=== PATIENT | female | born 1995 | race Caucasian/White ===

== ENCOUNTER 2017-01-04 12:41 | Emergency (ER) | payer OTHER ==
[~2017-01-04] VITALS: Ht 152.4 cm; Wt 62.6 kg
--- NOTE | 2017-01-04 13:39 | ED GI/GU/ABDOMINAL COMPLAINT ---
History of Present Illness General Chief Complaint: Abdominal Pain/Flank Pain Stated Complaint: RIGHT FLANK PAIN, ?"PROBLEMS WITH IUD" Source: patient Exam Limitations: no limitations Vital Signs & Intake/Output Vital Signs & Intake/Output Vital Signs Date Time Temp Pulse Resp B/P B/P Pulse O2 O2 Flow FiO2 Mean Ox Delivery Rate 01/04 1629 97.5 52 18 99/67 97 Room Air 01/04 1246 97.6 68 18 100/68 98 Room Air Allergies Coded Allergies: NO KNOWN ALLERGIES (05/03/12) Reconcile Medications Doxycycline Hyclate 100 MG TABLET 1 TAB PO BID llq pain Fluoxetine HCl 40 MG CAPSULE 1 CAP PO QAM MENTAL HEALTH (Reported) Levonorgestrel (Kyleena) 17.5 MCG/24 HOUR (5 YEARS) IUD CONTROL (Reported ) Lisdexamfetamine Dimesylate (Vyvanse) 50 MG CAPSULE 1 CAP PO QAM MENTAL HEALTH (Reported) Triage Note: 21 Y/O AND R FLANK. STATES SHE HAD AN IUD PLACED IN OCTOBER AND RECENTLY HAD INTERCOUSE - FELT PAIN IMMEDIATELY AFTER. DENIES URINARY SYMPTOMS. DENIES BLEEDING. STATES NAUSEA THIS MORNING. CALLED OB AND NO APPPOINTMENTS WERE AVAILABLE SO PT WAS DIRECTED TO ED. Triage Nurses Notes Reviewed? yes ? N Is pt currently ? No Onset: Abrupt Duration: week(s): (1) Timing: recent history Location: right flank, right lower quadrant, suprapubic No Modifying Factors: none HPI: 21 year old female presents to the ER for chief complaint of rlq pain radiating to the right groin and flank. She had an IUD placed in october and recently had intercourse and felt painthereafter. She denies any bleeding or urinary symptoms. She tried to go to her OB today who referred here here. Past History Travel History Traveled to [place] past 21 day No Medical History Any Pertinent Medical History? 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 No Review of Systems Review of Systems Constitutional: Denies: chills, fever. EENTM: Reports: no symptoms. Respiratory: Denies: cough, short of breath. Cardiovascular: Denies: chest pain. GI: Reports: abdominal pain, nausea. Denies: vomiting. Genitourinary: Denies: discharge, dysuria, frequency, hematuria. Musculoskeletal: Denies: back pain. Skin: Reports: no symptoms. Neurological/Psychological: Reports: no symptoms. Hematologic/Endocrine: Denies: bruising, bleeding, polyuria, polydipsia. Immunologic/Allergic: Denies: splenectomy. All Other Systems: Reviewed and Negative Physical Exam Physical Exam General Appearance: well developed/nourished, alert, awake Head: atraumatic, normal appearance Eyes: Bilateral: normal appearance, PERRL, EOMI. Ears, Nose, Throat, Mouth: hearing grossly normal, moist mucous membrane Neck: normal inspection, supple, full range of motion Respiratory: normal breath sounds, chest non-tender, no respiratory distress Cardiovascular: regular rate/rhythm Peripheral Pulses: 2+ radial (R), 2+ radial (L) Gastrointestinal: normal bowel sounds, soft, tenderness (rlq, suprapubic), NO REBOUND/GUARDING Pelvic: normal external exam, normal speculum exam, normal bimanual exam, no masses Back: normal inspection, normal range of motion Neurologic/Psych: no motor/sensory deficits, awake, alert, oriented x 3 Skin: intact, normal color, warm/dry Core Measures ACS in differential dx? No Severe Sepsis Present: No Septic Shock Present: No Progress Differential Diagnosis: ectopic , kidney stone, ovarian cyst, ovarian torsion, PID/cervicitis, UTI/pyelo Plan of Care: Orders Procedure Date/time Status TRICHOMONAS 01/04 1450 Complete POTASSIUM HYDROXIDE (ROMEO) 01/04 1450 Complete GENITAL CULTURE 01/04 1450 Active CHLAMYDIA-GC DNA PROBE 01/04 1450 Active URINE 01/04 1250 Complete URINALYSIS 01/04 1250 Complete Laboratory Tests 01/04/17 1407: Urine Color YEL, Urine Clarity CLEAR, Urine pH 7.5, Ur Specific [place] 1.010, Urine Protein 100 H, Urine Ketones NEG, Urine Nitrite NEG, Urine Bilirubin NEG, Urine Urobilinogen 2.0 H, Ur Leukocyte Esterase MOD H, Ur Microscopic SEDIMENT EXAMINED, Urine RBC 3-5, Urine WBC 15-25 H, Ur Epithelial Cells MOD H, Urine Bacteria MANY H, Urine Hemoglobin TRACE-INTACT, Urine Glucose NEG, Urine Test NEGATIVE Microbiology 01/04 1500 GENITAL: GC DNA Probe - RECD 01/04 1500 GENITAL: Chlamydia DNA Probe (YARA) - RECD 01/04 1500 GENITAL: ROMEO Preparation - COMP 01/04 1500 GENITAL: Trichomonas Preparation - COMP 01/04 1500 GENITAL: Genital Culture - RECD Diagnostic Imaging: Viewed by Me: Ultrasound. Discussed w/RAD: Ultrasound. Initial ED EKG: none Comments: PATIENT: NEYDA WILEY PRESENT AGE: 21 PATIENT ACCOUNT NO: [id number] : 95 LOCATION: [facility] ORDERING PHYSICIAN: WARREN LOPEZ MD SERVICE DATE: 01/04/17 EXAM TYPE: US - US-TRANSVAGINAL EXAMINATION: ULTRASOUND OF THE PELVIS CLINICAL INFORMATION: Pelvic pain after intercourse. Feels like IUD removed. Evaluate for dislodged IUD. COMPARISON: None TECHNIQUE: Transabdominal and transvaginal pelvic ultrasound. A transvaginal study was performed in addition to the transabdominal study which did not yield an adequate examination of the uterus and ovaries due to superimposed distended gas-filled loops of bowel. Also, the bladder was completely decompressed. FINDINGS: Uterus: The uterus is anteverted and normal in size and appearance, measuring 6.5 x 3.5 x 3.8. The endometrial stripe thickness is normal, measuring 0.5 cm in thickness. An intrauterine device is seen extending to the uterine fundus with the struts extending into the uterine horns . No focal myometrial mass is seen. The cervical length is normal measuring approximately 3 cm longitudinally. No endocervical fluid is seen. Ovaries: The ovaries bilaterally are visualized and demonstrate small follicles, with the right ovary measuring 2.7 x 1.5 x 1.6 cm and the left ovary measuring 3.7 x 1.6 x 3.3 cm. In the left ovary, the cysts measure up to 2.9 x 1.5 x 1.3 cm. No suspicious nodular components are seen. Other: No adnexal mass or free fluid collection seen. IMPRESSION: 1. Satisfactory positioning of the intrauterine device. 2. No abnormal endometrial or endocervical fluid or abnormal stripe thickening seen. 3. Normal uterus and ovaries. DICTATED BY: VALERI MCKEON MD DATE/TIME DICTATED:01/04/171538 SENIOR APPLICATIONS ANALYST:RASHID DATE/TIME TRANSCRIBED:01/04/171538 CONFIDENTIAL, DO NOT COPY WITHOUT APPROPRIATE AUTHORIZATION. <Electronically signed in Other Vendor System> SIGNED BY: VALERI MCEKON MD 1701 Departure Departure Time of Disposition: 1717 Disposition: HOME OR SELF CARE Condition: Stable Clinical Impression Primary Impression: IUD check up Referrals: SUMA RODRIGUEZ,SUSAN Cornelius (PCP/Family) Additional Instructions: Please follow-up with your ORTHOTIC FITTER doctor. Take Motrin Tylenol as needed for pain. Departure Forms: Customer Survey General Discharge Information
[2017-01-04] MEDS ORDERED: FLUOXETINE HCL40 M1 PO (13:54)
[2017-01-04] MEDS ORDERED: VYVANSE50 M1 PO (13:54)
[2017-01-04 16:29] VITALS: BP 99/67
--- NOTE | 2017-01-04 17:05 | ULTRASOUND REPORT ---
EXAMINATION: ULTRASOUND OF THE PELVIS CLINICAL INFORMATION: Pelvic pain after intercourse. Feels like IUD removed. Evaluate for dislodged IUD. COMPARISON: None TECHNIQUE: Transabdominal and transvaginal pelvic ultrasound. A transvaginal study was performed in addition to the transabdominal study which did not yield an adequate examination of the uterus and ovaries due to superimposed distended gas-filled loops of bowel. Also, the bladder was completely decompressed. FINDINGS: Uterus: The uterus is anteverted and normal in size and appearance, measuring 6.5 x 3.5 x 3.8. The endometrial stripe thickness is normal, measuring 0.5 cm in thickness. An intrauterine device is seen extending to the uterine fundus with the struts extending into the uterine horns . No focal myometrial mass is seen. The cervical length is normal measuring approximately 3 cm longitudinally. No endocervical fluid is seen. Ovaries: The ovaries bilaterally are visualized and demonstrate small follicles, with the right ovary measuring 2.7 x 1.5 x 1.6 cm and the left ovary measuring 3.7 x 1.6 x 3.3 cm. In the left ovary, the cysts measure up to 2.9 x 1.5 x 1.3 cm. No suspicious nodular components are seen. Other: No adnexal mass or free fluid collection seen. IMPRESSION: 1. Satisfactory positioning of the intrauterine device. 2. No abnormal endometrial or endocervical fluid or abnormal stripe thickening seen. 3. Normal uterus and ovaries.
== END 2017-01-04 17:27 ==
LOC: ERH 12:41
DX: T83.84XA Pain due to genitourinary prosthetic devices, implants and grafts, initial encounter (principal)
CPT/HCPCS: 87070; 81001; 81025; 87491; 87591

== ENCOUNTER 2017-01-13 15:58 | Emergency (ER) | payer OTHER ==
[~2017-01-13] VITALS: Ht 152.4 cm; Wt 63.0 kg
[~2017-01-13 15:58] MED LIST: FLUOXETINE HCL40 M1 PO; VYVANSE50 M1 PO
--- NOTE | 2017-01-13 16:25 | ED GENERAL ADULT ---
History of Present Illness General Chief Complaint: Abdominal Pain/Flank Pain Stated Complaint: PELVIC/ABD PAIN Source: patient Exam Limitations: no limitations Vital Signs & Intake/Output Vital Signs & Intake/Output Vital Signs Date Time Temp Pulse Resp B/P B/P Pulse O2 O2 Flow FiO2 Mean Ox Delivery Rate 01/13 2037 98.2 58 18 100/57 97 Room Air 01/13 1829 97.1 60 16 108/68 97 Room Air 01/13 1604 98.8 87 18 112/76 98 Room Air ED Intake and Output 01/14 0000 01/13 1200 Intake Total Output Total Balance Patient 139 lb Weight Weight Reported by Patient Measurement Method Allergies Coded Allergies: NO KNOWN ALLERGIES (05/03/12) Reconcile Medications Doxycycline Hyclate 100 MG TABLET 1 TAB PO BID llq pain Fluoxetine HCl 40 MG CAPSULE 1 CAP PO QAM MENTAL HEALTH (Reported) Levonorgestrel (Kyleena) 17.5 MCG/24 HOUR (5 YEARS) IUD CONTROL (Reported ) Lisdexamfetamine Dimesylate (Vyvanse) 50 MG CAPSULE 1 CAP PO QAM MENTAL HEALTH (Reported) Triage Note: 21 YO FEMAL TO TRIAGE C/O SELLING TO VAGINA AND BROWN DISCHARGE. STATES SHE HAD LOWER ABD PAIN. PT STATES SHE HAS AN IUD AND WAS SEEN HERE APPROX 10/26. STATES THE SWELLING AND PAIN HAS BEEN GOING ON FOR APPROX 1 MONTH BUT HASNT BEEN ABLE TO MAKE AN APPT WITH HER RASCHEL KNITTING MACHINE OPERATOR (UMBERTO) PT ALSO C/O LOWER BACK PAIN. C/O OCCASIONAL BURNING WITH URINATION. +NAUSEA ON/OFF. Triage Nurses Notes Reviewed? yes : No Patient currently breastfeeds: No HPI: 21-year-old female with a history of anxiety, ADHD, status post IUD placement 3 months ago presenting with lower abdominal pain, worse in the left lower quadrant became yesterday. Patient initially thought the pain was menstrual cramping as she was due for her period yesterday. However states that this pain feels different than her usual menstrual cramping, and that she has had no vaginal bleeding, but instead has had all smelling dark brown discharge. Endorses subjective fevers, nausea, vomiting. Also endorses intermittent dysuria, no hematuria. Denies diarrhea or constipation. She was recently seen in the ED 3 weeks ago with negative STD testing. Patient reports she is currently in a monogamous relationship with her long-term boyfriend. (BREE LOPEZ PA-C) Past History Travel History Traveled to [place] past 21 day No Medical History Any Pertinent Medical History? see below for history Neurological: NONE EENT: NONE Cardiovascular: NONE Respiratory: NONE Gastrointestinal: NONE Hepatic: NONE Renal: NONE Musculoskeletal: NONE Psychiatric: anxiety, adhd Endocrine: NONE Blood Disorders: NONE Cancer(s): NONE RASCHEL KNITTING MACHINE OPERATOR/Reproductive: NONE Surgical History Surgical History: non-contributory Psychosocial History What is your primary language Telugu Tobacco Use: Never used Family History Hx Contributory? No (JESSICA GAMBINO,BREE) Review of Systems Review of Systems Constitutional: Reports: chills, fever. Respiratory: Reports: no symptoms. Cardiovascular: Reports: no symptoms. GI: Reports: abdominal pain, nausea, vomiting. Denies: constipation, diarrhea, bloody stool. Genitourinary: Reports: discharge, dysuria. Denies: frequency, hematuria, urgency. Musculoskeletal: Reports: no symptoms. Neurological/Psychological: Reports: no symptoms. (BREE LOPEZ PA-C) Physical Exam Physical Exam General Appearance: well developed/nourished, alert, awake, anxious, moderate distress Head: atraumatic Respiratory: normal breath sounds, lungs clear Cardiovascular: regular rate/rhythm Gastrointestinal: normal bowel sounds, soft, tenderness, abdomen is tender to palpation across the lower abdomen, worse in the left lower quadrant, no rebound or guarding. Neurologic/Psych: awake, alert, oriented x 3, normal mood/affect Comments: On pelvic exam there is dark brown discharge coming from the cervical os that does not appear to have an odor, IUD string is visualized, no cervical motion tenderness, the left adnexa positive tenderness to palpation but with no masses, right adnexa is nontender to palpation and no masses. Core Measures ACS in differential dx? No CVA/TIA Diagnosis: No Severe Sepsis Present: No Septic Shock Present: No (BREE LOPEZ PA-C) Progress Differential Diagnoses I considered the following diagnoses in my evaluation of the patient: [TOA versus ovarian cyst versus cervicitis versus PID versus UTI versus dysmenorrhea versus uterine perforation] Plan of Care: Orders Procedure Date/time Status Add-on Test (ER Only) 01/13 2248 Active CBC WITHOUT DIFFERENTIAL 01/13 1709 Complete BASIC METABOLIC PANEL 01/13 170 Complete TRICHOMONAS 01/13 165 Complete GENITAL CULTURE 01/14 1652 Active CHLAMYDIA-GC DNA PROBE 01/13 165 Active URINE 01/13 1611 Complete URINALYSIS 01/13 1611 Complete Current Medications Sig/Ovidio Start time Last Medication Dose Stop Time Status Admin Ketorolac 30 MG ONCE ONE 01/13 1645 CAN Tromethamine 01/13 1646 (Toradol) Laboratory Tests 01/13/17 1709: Anion Gap 9, Estimated GFR > 60, BUN/Creatinine Ratio 17.1, Glucose 88, Calcium 9.3, CBC w Diff NO MAN DIFF REQ, RBC 4.36, MCV 91.2, MCH 30.8, RDW 13.2, MPV 8.3 , Gran % 66.0, Lymphocytes % 23.5, Monocytes % 6.8, Eosinophils % 2.1, Basophils % 1.6, Absolute Granulocytes 4.2, Absolute Lymphocytes 1.5, Absolute Monocytes 0.4, Absolute Eosinophils 0.1, Absolute Basophils 0.1, PUBS MCHC 33.7 01/13/17 161: Urinalysis LIGHT H, Urine Color YEL, Urine Clarity CLEAR, Urine pH 7.0, Ur Specific [place] 1.020, Urine Protein TRACE H, Urine Ketones NEG, Urine Nitrite NEG, Urine Bilirubin NEG, Urine Urobilinogen 2.0 H, Ur Leukocyte Esterase TRACE H, Ur Microscopic SEDIMENT EXAMINED, Urine RBC RARE, Urine WBC 3-5 H, Ur Epithelial Cells MOD H, Urine Bacteria MOD H, Urine Mucus MOD H, Urine Hemoglobin MOD H, Urine Glucose NEG, Urine Test NEGATIVE Microbiology 01/13 1700 GENITAL: GC DNA Probe - RECD 01/13 1700 GENITAL: Chlamydia DNA Probe (YARA) - RECD 01/13 1700 GENITAL: Trichomonas Preparation - COMP 01/13 1700 GENITAL: Genital Culture - RECD There is high concern for TOA as the patient has left lower quadrant tenderness to palpation on abdominal exam and left adnexal tenderness on bimanual exam with dark brown discharge and recent fevers, dysuria, nausea and vomiting. Labs and urine are unremarkable. White blood cell count within normal limits and no signs of urine infection. Urine negative. Ultrasound was unavailable in the ED at the time therefore obtained a CT abdomen and pelvis, which showed left ovarian cyst. However given patient's concerning presentation for TOA there is concern that the radiology read for ovarian cyst could be a misinterpreted TOA. 3 pages were placed to the patient's primary RASCHEL KNITTING MACHINE OPERATOR provider over a course of 2 hours with no return phone call. Therefore the patient was empirically treated for TOA with single doses of ceftriaxone and azithromycin, as well as a prescription for 14 day course of Doxy. Patient given strict return precautions and counseled that she needs to call her RASCHEL KNITTING MACHINE OPERATOR provider first thing tomorrow morning to schedule an appointment for evaluation. Patient acknowledged understanding of the importance of follow-up tomorrow morning. (BREE LOPEZ PA-C) Initial ED EKG: none (BREE LOPEZ PA-C) Departure Departure Disposition: HOME OR SELF CARE Condition: Stable Clinical Impression Primary Impression: LLQ pain Referrals: SUMA RODRIGUEZ,SUSAN Cornelius (PCP/Family) Additional Instructions: Begin taking doxycycline 100 mg twice a day for the next 14 days. Follow up with your RASCHEL KNITTING MACHINE OPERATOR for reevaluation tomorrow, and for transvaginal ultrasound imaging. Return to the ED for any new or worsening symptoms. Departure Forms: Customer Survey General Discharge Information Prescriptions: Current Visit Scripts Doxycycline Hyclate 1 TAB PO BID 14 Days (BREE LOPEZ PA-C) PA/SHADOWGRAPH OPERATOR Co-Sign Statement Statement: ED Attending supervision documentation- [] I saw and evaluated the patient. I have also reviewed all the pertinent lab results and diagnostic results. I agree with the findings and the plan of care as documented in the PA's/SHADOWGRAPH OPERATOR's documentation. [x] I have reviewed the ED Record and agree with the PA's/SHADOWGRAPH OPERATOR's documentation. [] Additions or exceptions (if any) to the PAs/SHADOWGRAPH OPERATOR's note and plan are summarized below: [] (CHELSIE RODRIGUEZ,MCKENNA Cordero) Critical Care Note Critical Care Note Critical Care Time: non-applicable (BREE LOPEZ PA-C)
[2017-01-13] MEDS ORDERED: KYLEENA1 EACH (17:02)
--- NOTE | 2017-01-13 18:44 | CT SCAN REPORT ---
EXAMINATION: CT ABDOMEN AND PELVIS WITH CONTRAST CLINICAL INFORMATION: 21-year-old woman with left lower quadrant pain, tenderness to palpation, and fevers. COMPARISON: 01/04/2017 ultrasound TECHNIQUE: Multidetector volumetric imaging was performed of the abdomen and pelvis after the IV administration of 94 mL of Optiray 320 intravenous contrast. Sagittal and coronal reformatted images were obtained on the technologist's workstation. DLP: 270 mGy-cm FINDINGS: The lung bases are clear. The liver, spleen, pancreas, adrenals, kidneys, and partially contracted gallbladder remain normal in appearance. Nondilated loops of large and small bowel are also unremarkable. The appendix and terminal ileum are not inflamed. An IUD is seen within the intrauterine cavity. Right adnexal structures are normal. A 3.0 x 3.6 cm cystic lesion is seen in the region of the left adnexa, presumably an ovarian cyst. The bladder is normal in appearance. IMPRESSION: No acute intra-abdominal process is seen to explain the patient's symptoms. Presumed 3.0 x 3.6 cm left ovarian cyst.
[2017-01-13] MEDS ORDERED: DOXYCYCLINE HY100 M4 PO (20:35)
[2017-01-13 20:37] VITALS: BP 100/57
[2017-01-13 22:56] LABS: ABSOLUTE BASOPHIL COUNT 0.1 /CUMM (0.0-0.2); ABSOLUTE EOSINOPHIL COUNT 0.1 /CUMM (0.0-0.7); ABSOLUTE GRANULOCYTE CT 4.2 /CUMM (1.4-6.5); ABSOLUTE LYMPH COUNT 1.5 /CUMM (1.2-3.4); ABSOLUTE MONOCYTE COUNT 0.4 /CUMM (0.10-0.60); BASOPHIL % 1.6 % (0.0-2.0); EOSINOPHIL % 2.1 % (0-5); HEMATOCRIT 39.8 % (37-47); MEAN CORPUSCULAR HGB 30.8 PG (27.0-31.0); MEAN CORPUSCULAR HGB CONC 33.7 G/DL (33.0-37.0); MEAN CORPUSCULAR VOLUME 91.2 FL (81.0-99.0); MEAN PLATELET VOLUME 8.3 FL (7.4-10.4); PLATELET COUNT 268 /CUMM (130-400); RBC DISTRIBUTION WIDTH 13.2 % (11.5-14.5); RED BLOOD CELL CT 4.36 /CUMM (4.20-5.40); WHITE BLOOD CELL COUNT 6.3 /CUMM (4.8-10.8)
== END 2017-01-13 20:53 ==
LOC: ERH 15:58
PROVIDERS: Physician Assistant
DX: R10.32 Left lower quadrant pain (principal)
CPT/HCPCS: 87070; 74177; 81001; 81025; 87491; 87591; 96372; 96374; J0696; J1885